=== PATIENT | female | born 1990 | race Asian ===

== ENCOUNTER 2018-11-03 15:14 | Emergency (ER) | payer SELFPAY ==
[~2018-11-03] VITALS: Ht 170.2 cm; Wt 86.6 kg
[2018-11-03 15:15] VITALS: BP_SYST 129
--- NOTE | 2018-11-03 15:15 | NUR ---
Patient triaged and placed in waiting room. VSS and patient appears in no acute distress at this time. Accompanied by SPOUSE, awaiting available bed, and MD notified of need for MSE.
--- NOTE | 2018-11-03 15:48 | NUR ---
BROUGHT BACK TO BED #3 AND TRIAGED. REPORT GIVEN TO TOMAS
--- NOTE | 2018-11-03 15:50 | NUR ---
ER Dr. Song at bedside examining patient.
--- NOTE | 2018-11-03 16:00 | NUR ---
Pt C/O left flank pain x 3 months. Pain is currently a 5/10 nonradiating. Pt denies any chest pain, shortness of breath, nausea, vomiting, or painful urination. Vital signs are stable will continue to monitor.
[2018-11-03 17:07] VITALS: BP_SYST 127
--- NOTE | 2018-11-03 17:07 | NUR ---
Patient given written and verbal discharge instructions and verbalizes understanding. ER MD discussed with patient the results and treatment provided. Patient in stable condition. ID arm band removed. Rx of LACTULOSE, MINERAL OIL given. Patient educated on pain management and to follow up with PMD. Pain Scale 0/10. Opportunity for questions provided and answered. Medication side effect fact sheet provided. PER DR GOLDMAN, PT IS TO FOLLOW A CLEAR LIQUAD DIET FOR NEXT 4 DAYS, PT STATES UNDERSTANDING. SPOUSE AT BEDSIDE TO HEAR DISCHARGE INFORMATION
== END 2018-11-03 17:07 | disposition home or self-care (01) ==
LOC: SED 15:14
DX: R10.9 Unspecified abdominal pain (principal); E11.9 Type 2 diabetes mellitus without complications
CPT/HCPCS: 74021; 81025; 99283

== ENCOUNTER 2019-07-08 10:33 | Emergency (ER) | payer MEDICAID, OTHER ==
[~2019-07-08] VITALS: Ht 170.2 cm; Wt 90.3 kg
[2019-07-08 10:33] VITALS: BP_SYST 100
--- NOTE | 2019-07-08 10:33 | NUR ---
BROUGHT BACK TO BED #6 AND TRIAGED. REPORT GIVEN TO ESTRELLITA
--- NOTE | 2019-07-08 10:40 | NUR ---
DOMENICA Armijo at bedside examining patient.
--- NOTE | 2019-07-08 11:04 | NUR ---
Patient presented to ER with c/o bilat ear pain and cough. Patient A&Ox4, ambulatory to ER arrived with mother, pain 07/04, denies N/V/D. Patient states cough started after ear pain, the right ear hurts more than left, patient states "ear feels stuffy" Patient denies other health hx.
[2019-07-08 11:05] VITALS: BP_SYST 100
--- NOTE | 2019-07-08 11:05 | NUR ---
Patient given written and verbal discharge instructions and verbalizes understanding. ER MD discussed with patient the results and treatment provided. Patient in stable condition. ID arm band removed. Rx of given. Patient educated on pain management and to follow up with PMD. Pain Scale 8/10 tolerable for pt . Opportunity for questions provided and answered. Medication side effect fact sheet provided.
== END 2019-07-08 11:05 | disposition home or self-care (01) ==
LOC: SED 10:33
DX: H66.91 Otitis media, unspecified, right ear (principal); J06.9 Acute upper respiratory infection, unspecified; E11.9 Type 2 diabetes mellitus without complications
CPT/HCPCS: 99283

== ENCOUNTER 2019-08-28 06:28 | Inpatient (IN) | payer OTHER ==
[~2019-08-28] VITALS: Ht 170.2 cm; Wt 99.8 kg
[2019-08-28 06:40] VITALS: BP_SYST 121
--- NOTE | 2019-08-28 06:40 | NUR ---
Patient to ER bed 6 for evaluation. Side rails up. Report given to Jen CALVILLO.
--- NOTE | 2019-08-28 06:50 | NUR ---
Pt is a 29 year old female with hx of diabetes C/O abdominal pain, nausea and three episodes of vomiting since 0 last night. Pt states she had poor appetite yesterday and drank a "medicine ball" from [email or web address] shortly before her symptoms started. Pt was unable to sleep due to pain. Denies dysuria, flank pain, , or any other symptoms at this time. Will continue to monitor.
--- NOTE | 2019-08-28 07:19 | NUR ---
Report given to Rainer CALVILLO for continuation of care.
--- NOTE | 2019-08-28 07:35 | NUR ---
Patient awake and resting in bed, no signs or symptoms of acute distress noted. Respirations even and unlabored, skin warm/pink/dry.
[2019-08-28 07:58] LABS: BASOPHILS % (AUTO) 0.4 % (0.0-2.0); EOSINOPHILS # (AUTO) 0.1 K/uL (0.0-0.4); EOSINOPHILS % (AUTO) 0.5 % (0.0-4.0); HEMATOCRIT 39.3 % (36-48); HEMOGLOBIN 13.1 g/dL (12.0-16.0); LYMPHOCYTES # (AUTO) 2.7 K/uL (1.0-5.5); LYMPHOCYTES % (AUTO) 22.7 % (20.5-51.5); MEAN CORPUSCULAR HEMOGLOBIN 28 pg (27-31); MEAN CORPUSCULAR HGB CONC 34 % (32-36); MEAN CORPUSCULAR VOLUME 83 fL (79.0-98.0); MONOCYTES # (AUTO) 0.5 K/uL (0.0-1.0); MONOCYTES % (AUTO) 3.8 % (1.7-9.3); NEUTROPHILS # (AUTO) 8.7 K/uL (1.8-7.7); NEUTROPHILS % (AUTO) 72.6 % (40.0-70.0); PLATELET COUNT (AUTO) 275 K/uL (130-430); RED BLOOD CELL COUNT(AUTO) 4.73 MIL/uL (4.2-6.2); RED CELL DISTRIBUTION WIDTH 14.9 % (9.0-15.0)
[2019-08-28 08:07] LABS: CALCIUM 8.8 mg/dL (8.4-11.0); CREATININE 0.81 mg/dL (0.55-1.30)
--- NOTE | 2019-08-28 08:10 | NUR ---
DOMENICA Armijo at bedside examining patient.
[2019-08-28 08:12] LABS: PROTHROMBIN TIME 9.9 SECS (9.5-12.5)
[2019-08-28 08:21] LABS: BILIRUBIN,URINE 1+ (NEGATIVE); CLARITY/URINE HAZY (CLEAR); COLOR,URINE YELLOW (YELLOW); GLUCOSE,URINE NEGATIVE (NEGATIVE); KETONES,URINE 2+ (NEGATIVE); LEUKOCYTE ESTERASE ,URINE TRACE (NEGATIVE); NITRITE, URINE NEGATIVE (NEGATIVE); PH,URINE 5.5 (5.0-8.0); PROTEIN URINE TRACE (NEGATIVE); UROBILINOGEN,URINE 0.2 (0.2-1.0)
[2019-08-28 08:22] LABS: ALBUMIN 3.7 g/dL (3.4-4.8); TOTAL BILIRUBIN 0.7 mg/dL (0.0-1.0)
[2019-08-28 08:24] LABS: BLOOD, URINE TRACE (NEGATIVE)
[2019-08-28 08:52] LABS: BACTERIA,URINE FEW /HPF (None Seen); URINE AMORPHOUS URATE 1+ /HPF (None Seen)
[2019-08-28] MEDS ORDERED: MORPHINE 4 MG/ML INJ. SYRINGE IVP ONE (09:15)
[2019-08-28] MEDS ORDERED: PIPERACILLIN/TAZO 3.375 GM in NS 50 ML IV ONE (09:15)
[2019-08-28] MEDS ORDERED: NACL 0.9% 1,000 ML IV ONE (09:15)
[2019-08-28] MEDS ORDERED: ACETAMINOPHEN 325 MG TABLET PO PRN (09:45)
[2019-08-28] MEDS ORDERED: ONDANSETRON HCL 4 MG/2 ML VIAL IVP PRN ×2 (09:45→21:00)
[2019-08-28] MEDS ORDERED: LORazepam 2 MG/ML VIAL IVP ONE (09:45)
--- NOTE | 2019-08-28 09:45 | NUR ---
Patient will be admitted to care of Dr. Smith. Admitted to med-surg unit. Will go to room 112-B. Belongings list completed. Summary report printed. Report will be given at bedside.
--- NOTE | 2019-08-28 10:54 | NUR ---
ADMISSION NOTE Received patient from ER via tang, received report from MARIO CALVILLO. Patient admitted with diagnosis of ACUTE APPENDICITIS. Patient oriented to hospital routine, call light, toileting and safety-patient verbalized understanding.
--- NOTE | 2019-08-28 11:00 | NUR ---
Patient transferred to med-surg unit room 112-B using ACLS protocol. ACLS RN present at all times. Endorsed bedside report to Bisi RN using SBAR approach for continuation of care.
[2019-08-28 11:05] VITALS: BP_SYST 118
--- NOTE | 2019-08-28 11:30 | NUR ---
Initial physical assessment: Patient alert, awake, oriented. Stable. Ambulatory. No skin issues. Discussed plan of care. Call light within reach. Safety measures in placed.
[2019-08-28] MEDS: LR 1,000 ML IV SCH ×2 (11:49→19:45)
--- NOTE | 2019-08-28 14:00 | NUR ---
Kristy rounds: Seen by Dr. Smith with new order.
[2019-08-28] MEDS ORDERED: AMOX-426 PO (14:06)
[2019-08-28 14:33] VITALS: BP_SYST 111
--- NOTE | 2019-08-28 14:57 | NUR ---
ATTENDING/GEN SURGEON WAS CALLED RE: PRESCRIPTION AND TO INFORM THAT PT IS IN PAIN AFTER EATING JELLO. SPOKE TO MAGNO.
--- NOTE | 2019-08-28 15:16 | NUR ---
Abdominal Pain: Patient complained of abdominal pain after eating jello. Informed Dr. Smith and he's going to see the patient.
--- NOTE | 2019-08-28 16:56 | NUR ---
rounds: patient hesitant to go home since she still having abd pain just drinking water. She said she will wait for the and discussed the surgery with the .
--- NOTE | 2019-08-28 17:00 | NUR ---
Surgery: Informed Dr. Smith patient wants to have surgery. He said keep the patient NPO and he will make arrangement for the surgery tonight or tomorrow.
--- NOTE | 2019-08-28 17:28 | NUR ---
ATTENDING GEN TC COLLIER, DR Gayle HU WAS CALLED RE: PT AGREED TO THE SURGERY. SPOKE TO ROSSY
--- NOTE | 2019-08-28 18:43 | NUR ---
Closing notes: Patient resting on bed with at bedside. Stable. Remains NPO for the surgery. Call light within reach. Report will be given to product development specialist.
[2019-08-28 19:00] VITALS: BP_SYST 128
--- NOTE | 2019-08-28 19:15 | NUR ---
change of shift.pt.is scheduled to submit to surgery per @1999p.pt.presents stable status.general status stable.respiratory status stable.i am to f./y re;the surgical check-list.items;interventions.iv fluids infusing.
--- NOTE | 2019-08-28 20:00 | NUR ---
pt.assessed.v/s assessed.values w/in normal limits.i am reviewing the surgery check-list.id-band present,i have placed allergy band upon the pt.i have provided the chg;wash cloths to the pt.surgery nsg present reviewing pt's q's re;surgery.awaiting 's arrival.
[2019-08-28] MEDS ORDERED: ROCURONIUM BROMIDE 10 MG/ML (ZEMURON) IV ONE (20:15)
[2019-08-28] MEDS ORDERED: ONDANSETRON HCL 4 MG/2 ML VIAL IVP ONE (20:15)
[2019-08-28] MEDS ORDERED: NS IRRIG SOLN 1000 ML IR ONE (20:15)
[2019-08-28] MEDS ORDERED: SEVOFLURANE 15 MIN GAS INH ONE (20:15)
[2019-08-28] MEDS ORDERED: MIDAZOLAM HCL 5 MG/5 ML VIAL IVP ONE (20:15)
[2019-08-28] MEDS ORDERED: PROPOFOL 200MG/ 20ML VIAL (DIPRIVAN) IV ONE (20:15)
[2019-08-28] MEDS ORDERED: CEFAZOLIN 2 GM IVPB PREMIX 50 ML IV ONE (20:15)
[2019-08-28] MEDS ORDERED: KETOROLAC TROMETHAMINE 30 MG VIAL IVP ONE (20:15)
[2019-08-28] MEDS ORDERED: LR 1,000 ML IV.SOLN IV ONE (20:15)
[2019-08-28] MEDS ORDERED: fentaNYL CITRATE/PF 100 MCG/2 ML AMP IVP ONE (20:15)
[2019-08-28] MEDS ORDERED: IOHEXOL 0 ML IV ONE (20:44)
--- NOTE | 2019-08-28 20:45 | NUR ---
rama lawson;anesthesiology/ present.reviewing the surgery procedure w/the pt.@the bedside.pt.has signed the consent;surgery,anesthesiology.i have witnessed the pt's provided the signature.pt's q's;erika benjamin/rama provided the answers.i have assisted in the transfer of the pt tot the surgical room.
[2019-08-28] MEDS ORDERED: fentaNYL CITRATE/PF 100 MCG/2 ML AMP IVP PRN ×2 (21:00)
[2019-08-28] MEDS ORDERED: HYDROcodone/ACETAMIN 5-325 MG TAB (NORCO/ VICODIN) PO PRN (22:30)
--- NOTE | 2019-08-28 23:00 | NUR ---
pt.returned to the unit;s/p surgery.pt.submitted to lap choley:per .pt.presents incision sites x4.dsg intact.;absent drains. iv fluids infusing;lr.o2 therapy applied post-op.02-sat%=96%.pt.presents scd's .pt.absent kidd catheter.pt.repositioned for comfort. v/s initiated per post-op interval;s per post-op protocol.
[2019-08-28] MEDS: MORPHINE 2 MG/ML INJ. SYRINGE IVP PRN (23:28)
--- NOTE | 2019-08-28 23:30 | NUR ---
pt.assessed.pt.had requested medication;pain.i have administered morphine;2mg ivp:to f/u re;pain medication efficacy per pain mgx protocol.no c/o nausea.
--- NOTE | 2019-08-29 | NUR ---
pt. assessed.v/s assessed;values w/in normal limits;02-sat%=96%.pt.presents quiescent affect;calm,somnolent.iv access intact patent iv fluids infusing.pt.repositioned.general status stable.respiratory status stable.call light/telephone w/in reach of the pt.
--- NOTE | 2019-08-29 02:00 | NUR ---
pt.assessed.pt.presents quiescent affect;calm,somnolent.v/s w/in normal limits.iv access intact patent iv fluids infusing. pt.repositioned.general status stable.respiratory status stable;o2--sat%=96%.call light/telephone w/in reach of the pt.
[2019-08-29] MEDS ORDERED: CEFAZOLIN 2 GM IVPB PREMIX 100 ML IV ONE (02:09)
[2019-08-29] MEDS: LR 1,000 ML IV SCH ×2 (03:13→15:45)
[2019-08-29] MEDS: MORPHINE 2 MG/ML INJ. SYRINGE IVP PRN ×5 (03:23→22:37)
--- NOTE | 2019-08-29 03:30 | NUR ---
pt.had awakened.pt.had requested medication;pain.i have administered morphine;2mg ivp.to f/u re;pain mediation efficacy re:pain. medication efficacy per pain mgx protocol.pt.repositioned,.i have changed the iv fluids .pt.had stated her throat was sore;pt.had submited to an ng-tube insertion per the ;anesthesiology to drain stomach content p/t surgery.i have provided a cup of tea.
--- NOTE | 2019-08-29 04:00 | NUR ---
pt.assessed.pt had requested to be repositioned.pt repositioned.iv access intact patent iv fluids infusing.pt.stated pain level comfortable. call light/telephone placed w/in reach of the pt.
[2019-08-29 05:01] VITALS: BP_SYST 115
[2019-08-29 05:50] VITALS: BP_SYST 115
[2019-08-29] MEDS: ceFAZolin SODIUM 2 GM in D5W 100 ML IV SCH ×3 (06:29→22:36)
--- NOTE | 2019-08-29 06:30 | NUR ---
pt.assisted to the restroom.pt.urinated.pt.medicated for pain;morphine;2mg ivp. iv acces intact;patent;i have admiistered ancef;abx;ivpb.general status stable.r respiratory status stable.call light/telephone placed w/in reach of the pt.
--- NOTE | 2019-08-29 07:54 | NUR ---
PATIENT IS A/OX4. ASKING FOR MEDS FOR HER ABDOMINAL PAIN; POC IS EXPLAINED. STATES SHE WANTS TO HAVE SOMETHING TO DRINK, BUT NO DIET ORDER IS PLACED. DR. HU IS CALLED. CALL LIGHT IN PLACE, BED LOCKED AT THE LOWEST POSITION, WILL CONTINUE TO MONITOR.
[2019-08-29 08:00] VITALS: BP_SYST 115
--- NOTE | 2019-08-29 10:00 | NUR ---
Patient is at rest. He is changed and repositioned for comfort. No signs of distress noted.
[2019-08-29 11:34] VITALS: BP_SYST 113
--- NOTE | 2019-08-29 12:10 | NUR ---
PATIENT IS FED LUNCH. TOLERATED WITHOUT DISTRESS.
--- NOTE | 2019-08-29 13:42 | NUR ---
PATIENT IS MOVED TO 110A. PATIENT IS ABLE TO AMBULATE FROM 112B TO 110A WITH STANDBY ASSISTANCE.
--- NOTE | 2019-08-29 15:17 | NUR ---
Dietitian Recommendations * Consider advance to CCHO, low-fat, gluten-free diet if/when medically appropriate * Pt is a lacto-ovo pescatarian * FNS to adhere to pt's dietary preferences ALESSANDRA, JAZZ Please refer to Nutrition Assessment for details. Addendum: 08/29/19 at [address] Amended: Links added.
[2019-08-29 15:25] VITALS: BP_SYST 109
--- NOTE | 2019-08-29 16:41 | NUR ---
PATIENT IS WALKING AROUND THE NURSING STATION WITH RN'S STANDBY ASSISTANCE.
--- NOTE | 2019-08-29 17:50 | NUR ---
Dr. Smith is at bedside assessing patient.
[2019-08-29 20:49] VITALS: BP_SYST 114
--- NOTE | 2019-08-29 20:50 | NUR ---
PHONED PAGED DR FRITZ COLLIER REGARDING ADVANCE OF PO DIET / .
--- NOTE | 2019-08-30 | NUR ---
NEW ORDERS OBTAINED DR FRITZ COLLIER , ADVANCE PO DIET TO LOW FAT .
--- NOTE | 2019-08-30 01:06 | NUR ---
HOURLY ROUNDING PATIENT IS RESTING HOB ELEVATED CALL SYSTEM IS WITH PATIENT FAMILY @ THE BEDSIDE .
[2019-08-30 02:31] VITALS: BP_SYST 116
--- NOTE | 2019-08-30 04:36 | NUR ---
Patient Resting this hour family at the bedside HOB elevated no acute distress call saucedo with patient .
[2019-08-30] MEDS: ceFAZolin SODIUM 2 GM in D5W 100 ML IV SCH ×2 (06:58→14:03)
[2019-08-30] MEDS: LR 1,000 ML IV SCH ×2 (06:59→11:45)
--- NOTE | 2019-08-30 07:45 | NUR ---
OPENING NOTE: PATIENT IS ASLEEP IN BED. FAMILY AT BEDSIDE. NO SIGNS OF DISTRESS OR SHORTNESS OF BREATH NOTED. PATIENT IS TOLERATING OXYGEN AT ROOM AIR. IV SITE IS PATENT WITH NO SIGNS OF INFILTRATION. PATIENT IN STABLE CONDITION. SAFETY, FALL AND ASPIRATION PRECAUTIONS ARE IN PLACE. BED LOCKED IN LOWEST POSITION WITH CALL LIGHT IN REACH. WILL CONTINUE TO MONITOR PATIENT FOR ANY CHANGES.
[2019-08-30 08:00] VITALS: BP_SYST 111
--- NOTE | 2019-08-30 10:15 | NUR ---
RN ROUNDS: PATIENT IS AWAKE AND ALERT x4 LAYING DOWN IN BED. PATIENT DENIES ANY PAIN AT THE MOMENT. NO SIGNS OF DISTRESS OR SHORTNESS OF BREATH NOTED. IV SITE IS PATENT WITH NO SIGNS OF INFILTRATION AND INFUSING FLUIDS ORDERED. PATIENT EDUCATED ON THE USE OF THE INCENTIVE SPIROMETER AND IS DOING 1,500. PATIENT IN STABLE CONDITION. WILL CONTINUE TO MONITOR PATIENT FOR ANY CHANGES.
[2019-08-30 11:38] VITALS: BP_SYST 112
--- NOTE | 2019-08-30 12:40 | NUR ---
RN ROUNDS: PATIENT IS AWAKE AND ALERT x4 IN BED. FAMILY AT BEDSIDE. PATIENT STATES SHE IS HAVING PAIN 4/10. PRN PAIN MEDICATION WILL BE GIVEN. PATIENT IN STABLE CONDITION. WILL CONTINUE TO MONITOR PATIENT FOR ANY CHANGES.
[2019-08-30] MEDS: MORPHINE 2 MG/ML INJ. SYRINGE IVP PRN (13:10)
--- NOTE | 2019-08-30 14:38 | NUR ---
RN ROUNDS: PATIENT IS AWAKE AND ALERT x4. PATIENT DENIES ANY PAIN AT THE MOMENT. FAMILY AT BEDSIDE. NO SIGNS OF DISTRESS OR SHORTNESS OF BREATH NOTED. PATIENT IN STABLE CONDITION. WILL CONTINUE TO MONITOR PATIENT FOR ANY CHANGES.
[2019-08-30 15:05] VITALS: BP_SYST 111
--- NOTE | 2019-08-30 16:05 | NUR ---
RN ROUNDS: PATIENT IS AWAKE AND ALERT x4 LAYING DOWN IN BED. PATIENT DENIES ANY PAIN AT THE MOMENT. NO SIGNS OF DISTRESS OR SHORTNESS OF BREATH NOTED. FAMILY AT BEDSIDE. PATIENT IN STABLE CONDITION. WILL CONTINUE TO MONITOR PATIENT FOR ANY CHANGES.
[2019-08-30 16:10] VITALS: BP_SYST 113
[2019-08-30] MEDS ORDERED: HYDR-3607 PO (16:20)
--- NOTE | 2019-08-30 16:46 | NUR ---
D/C Patient: Patient given medication reconciliation form and D/C instructions. Exit Care provided. Patient verbalized understanding. MD discussed with patient the results and treatment provided. Ambulatory with steady gait for discharge to home but wheeled out in a wheelchair. Patient in stable condition, ID band removed. IV catheter removed, intact and dressing applied, no active bleeding. Rx of Augmentin and hydrocodone/acetaminophen given. Patient educated on pain management. All belongings sent with patient.
== END 2019-08-30 16:46 | disposition home or self-care (01) | DRG 263 ==
LOC: SED 06:28 → SMU 09:41
PROVIDERS: ADMIT Surgery; ATTEND Surgery
PROC: 0FT44ZZ Resection of Gallbladder, Percutaneous Endoscopic Approach (ICD-10-PCS; principal; 2019-08-28 20:15)
DX: K80.00 Calculus of gallbladder with acute cholecystitis without obstruction (principal); K35.80 Unspecified acute appendicitis; K76.0 Fatty (change of) liver, not elsewhere classified; K82.8 Other specified diseases of gallbladder; N83.201 Unspecified ovarian cyst, right side
CPT/HCPCS: 36415; 80053; 81000-TC; 82948; 82962; 83690-TC; 84702-TC; 85025; 85610-TC; 86901; 87081; 87086; 88304; 94010; 94760; 96361; 96365; 99285; C1727; J0690; J1885; J2060; J2250; J2270; J2405; J2543; J2704; J3010; J7030; J7060; J7120; Q9967

== ENCOUNTER 2019-10-05 21:27 | Emergency (ER) | payer OTHER ==
[~2019-10-05] VITALS: Ht 167.6 cm; Wt 99.8 kg
[~2019-10-05 21:27] MED LIST: AMOX-426 PO
[2019-10-05 21:40] VITALS: BP_SYST 138
--- NOTE | 2019-10-05 21:40 | NUR ---
Pt ambulatory to bed 2 for evaluation
[2019-10-05] MEDS ORDERED: NACL 0.9% 1,000 ML IV ONE (21:54)
[2019-10-05] MEDS ORDERED: MORPHINE 4 MG/ML INJ. SYRINGE IVP ONE (22:00)
[2019-10-05] MEDS ORDERED: ONDANSETRON HCL 4 MG/2 ML VIAL IVP ONE (22:00)
--- NOTE | 2019-10-05 22:00 | NUR ---
Dr. Martinez bedside for Pt eval
--- NOTE | 2019-10-05 22:05 | NUR ---
Pt BIB family to ED C/O intermittent umbilical pain for two days that radiates to the epigastrium this afternoon after eating [employer]. The abdominal pain is rated 8/10 intensity and exacerbates with deep breaths. The patient reports pain every 10 minutes. She further states nausea associated with 3 episodes of non-bilious, non-bloody emesis today. Per patient, she had her appendix checked 3 days which resulted normal. Her last menstrual period is reportedly 09/10/19. She is reportedly allergic to gluten. No other complaints and or injuries noted VSS no s/s of acute distress. Resting on [employer] rails up
[2019-10-05 22:23] LABS: BASOPHILS % (AUTO) 0.2 % (0.0-2.0); EOSINOPHILS # (AUTO) 0.1 K/uL (0.0-0.4); EOSINOPHILS % (AUTO) 1.3 % (0.0-4.0); HEMATOCRIT 38.4 % (36-48); HEMOGLOBIN 12.8 g/dL (12.0-16.0); LYMPHOCYTES # (AUTO) 2.9 K/uL (1.0-5.5); LYMPHOCYTES % (AUTO) 29.9 % (20.5-51.5); MEAN CORPUSCULAR HEMOGLOBIN 28 pg (27-31); MEAN CORPUSCULAR HGB CONC 33 % (32-36); MEAN CORPUSCULAR VOLUME 84 fL (79.0-98.0); MONOCYTES # (AUTO) 0.4 K/uL (0.0-1.0); MONOCYTES % (AUTO) 4.7 % (1.7-9.3); NEUTROPHILS # (AUTO) 6.1 K/uL (1.8-7.7); NEUTROPHILS % (AUTO) 63.9 % (40.0-70.0); PLATELET COUNT (AUTO) 228 K/uL (130-430); RED BLOOD CELL COUNT(AUTO) 4.58 MIL/uL (4.2-6.2); RED CELL DISTRIBUTION WIDTH 14.7 % (9.0-15.0); WHITE BLOOD COUNT (AUTO) 9.6 K/uL (4.8-10.8)
[2019-10-05 22:36] LABS: CREATININE 0.82 mg/dL (0.55-1.30); POTASSIUM 3.8 mmol/L (3.5-5.1)
[2019-10-05 22:40] LABS: PROTHROMBIN TIME 9.6 SECS (9.5-12.5)
[2019-10-05 22:42] LABS: ALBUMIN 3.6 g/dL (3.4-4.8); TOTAL BILIRUBIN 0.2 mg/dL (0.0-1.0)
[2019-10-05 22:50] LABS: CALCIUM 8.9 mg/dL (8.4-11.0)
[2019-10-05 23:04] LABS: BILIRUBIN,URINE NEGATIVE (NEGATIVE); BLOOD, URINE 1+ (NEGATIVE); COLOR,URINE YELLOW (YELLOW); GLUCOSE,URINE TRACE (NEGATIVE); KETONES,URINE NEGATIVE (NEGATIVE); LEUKOCYTE ESTERASE ,URINE TRACE (NEGATIVE); NITRITE, URINE NEGATIVE (NEGATIVE); PROTEIN URINE 1+ (NEGATIVE); UROBILINOGEN,URINE 0.2 (0.2-1.0)
--- NOTE | 2019-10-05 23:15 | NUR ---
VSS no s/s of acute distress Resting on gurney rails up
[2019-10-05 23:17] LABS: CLARITY/URINE SLIGHTLY HAZY (CLEAR)
[2019-10-05 23:18] LABS: BACTERIA,URINE FEW /HPF (None Seen)
[2019-10-05 23:19] LABS: MUCUS,URINE 1+ /LPF (None Seen)
[2019-10-05] MEDS ORDERED: MORPHINE 2 MG/ML INJ. SYRINGE IVP ONE (23:30)
--- NOTE | 2019-10-06 00:15 | NUR ---
Pt's 2nd dose of pain med effective AEB falling a sleep
--- NOTE | 2019-10-06 00:40 | NUR ---
Pt taken to Radiology in stable condition
--- NOTE | 2019-10-06 00:47 | NUR ---
Pt back from Radiology, well tolerated
--- NOTE | 2019-10-06 01:32 | NUR ---
VSS no s/s of acute distress. Resting on gurney rails up
--- NOTE | 2019-10-06 01:38 | NUR ---
Dr. Martinez bedside for Pt update
[2019-10-06] MEDS ORDERED: MORPHINE 2 MG/ML INJ. SYRINGE IVP ONE (02:00)
[2019-10-06 02:46] VITALS: BP_SYST 138
--- NOTE | 2019-10-06 02:46 | NUR ---
Patient given written and verbal discharge instructions and verbalizes understanding. ER MD discussed with patient the results and treatment provided. Patient in stable condition. ID arm band removed. IV catheter removed intact and dressing applied, no active bleeding. Rx of Protonix and [place] given. Patient educated on pain management and to follow up with PMD. Pain Scale 0/10 Opportunity for questions provided and answered. Medication side effect fact sheet provided.
== END 2019-10-06 02:46 | disposition home or self-care (01) ==
LOC: SED 21:27
DX: R10.33 Periumbilical pain (principal); R11.2 Nausea with vomiting, unspecified; E11.9 Type 2 diabetes mellitus without complications; Z88.8 Allergy status to other drugs, medicaments and biological substances; Z79.899 Other long term (current) drug therapy; Z90.49 Acquired absence of other specified parts of digestive tract
CPT/HCPCS: 36415; 74176; 80053; 81000; 81025; 82150; 83690; 85025; 85610; 87086; 96361; 96374; 96375; 96376; 99284; J2270 ×3; J2405; J7030

== ENCOUNTER 2019-11-03 11:43 | Emergency (ER) | payer SELFPAY ==
[~2019-11-03] VITALS: Ht 170.2 cm; Wt 102.1 kg
[2019-11-03 12:01] VITALS: BP_SYST 151
--- NOTE | 2019-11-03 12:06 | NUR ---
Patient triaged and placed in waiting room. VSS and patient appears in no acute distress at this time. Accompanied by , awaiting available bed, and MD notified of need for MSE.
[2019-11-03 12:57] LABS: BASOPHILS % (AUTO) 0.5 % (0.0-2.0); EOSINOPHILS # (AUTO) 0.1 K/uL (0.0-0.4); EOSINOPHILS % (AUTO) 1.3 % (0.0-4.0); HEMATOCRIT 39.9 % (36-48); HEMOGLOBIN 13.3 g/dL (12.0-16.0); LYMPHOCYTES # (AUTO) 2.3 K/uL (1.0-5.5); LYMPHOCYTES % (AUTO) 26.5 % (20.5-51.5); MEAN CORPUSCULAR HEMOGLOBIN 28 pg (27-31); MEAN CORPUSCULAR HGB CONC 33 % (32-36); MEAN CORPUSCULAR VOLUME 84 fL (79.0-98.0); MONOCYTES # (AUTO) 0.3 K/uL (0.0-1.0); MONOCYTES % (AUTO) 3.7 % (1.7-9.3); NEUTROPHILS # (AUTO) 5.8 K/uL (1.8-7.7); PLATELET COUNT (AUTO) 237 K/uL (130-430); RED BLOOD CELL COUNT(AUTO) 4.73 MIL/uL (4.2-6.2); RED CELL DISTRIBUTION WIDTH 14.3 % (9.0-15.0); WHITE BLOOD COUNT (AUTO) 8.5 K/uL (4.8-10.8)
[2019-11-03 13:15] LABS: CALCIUM 8.9 mg/dL (8.4-11.0); CREATININE 0.73 mg/dL (0.55-1.30); POTASSIUM 3.8 mmol/L (3.5-5.1)
[2019-11-03 13:16] LABS: INR 0.9 (0.8-1.2); PROTHROMBIN TIME 9.4 SECS (9.5-12.5)
[2019-11-03 13:19] LABS: TOTAL BILIRUBIN 0.5 mg/dL (0.0-1.0)
--- NOTE | 2019-11-03 15:25 | NUR ---
Patient to ER bed 04 to gown for evaluation. Side rails up. Report given to KARLI Spear
--- NOTE | 2019-11-03 15:31 | NUR ---
Patient is awake, alert, and oriented x4. Patient is complaining of upper abdominal pain, nausea, vomiting since 0600 today.
[2019-11-03 16:57] LABS: BILIRUBIN,URINE NEGATIVE (NEGATIVE); BLOOD, URINE 2+ (NEGATIVE); CLARITY/URINE CLEAR (CLEAR); COLOR,URINE YELLOW (YELLOW); GLUCOSE,URINE TRACE (NEGATIVE); KETONES,URINE NEGATIVE (NEGATIVE); LEUKOCYTE ESTERASE ,URINE NEGATIVE (NEGATIVE); NITRITE, URINE NEGATIVE (NEGATIVE); PH,URINE 5.5 (5.0-8.0); PROTEIN URINE TRACE (NEGATIVE); UROBILINOGEN,URINE 0.2 (0.2-1.0)
--- NOTE | 2019-11-03 17:05 | NUR ---
ER Dr. Chun at bedside examining patient.
--- NOTE | 2019-11-03 17:10 | NUR ---
Patient ambulated to radiology, accompanied by behavioral health technician.
[2019-11-03 17:14] LABS: BACTERIA,URINE MODERATE /HPF (None Seen); WBC,URINE 0-3 /HPF (0-3)
[2019-11-03] MEDS ORDERED: MAG HYDROX/AL HYDROX/SIMETH 30 ML, DICYCLOMINE HCL 20 MG, LIDOCAINE VISCOUS 2% 15ML (PO... PO ONE ×3 (17:15)
[2019-11-03 17:54] VITALS: BP_SYST 124
--- NOTE | 2019-11-03 17:54 | NUR ---
Patient given written and verbal discharge instructions and verbalizes understanding. ER MD discussed with patient the results and treatment provided. Patient in stable condition. ID arm band removed. Rx of protonix given. Patient educated on pain management and to follow up with PMD. Pain Scale 0/10. Opportunity for questions provided and answered. Medication side effect fact sheet provided.
== END 2019-11-03 17:54 | disposition home or self-care (01) ==
LOC: SED 11:43
DX: K29.70 Gastritis, unspecified, without bleeding (principal); E11.9 Type 2 diabetes mellitus without complications; Z90.49 Acquired absence of other specified parts of digestive tract; Z88.8 Allergy status to other drugs, medicaments and biological substances
CPT/HCPCS: 36415; 74018; 80053; 81000; 81025; 83690; 85025; 85610; 99284; J2001